=== PATIENT | male | born 1970 | race Caucasian/White ===

== ENCOUNTER 2021-09-25 00:11 | Emergency (ER) | payer MEDICAID ==
[~2021-09-25] VITALS: Ht 182.9 cm; Wt 90.9 kg
[2021-09-25 01:20] LABS: BASOPHILS % (AUTO) 0.5 % (0-1); LYMPHOCYTES # (AUTO) 0.6 X10'3 (1.1-4.8); MONOCYTES # (AUTO) 0.6 X10'3 (0-0.9); NEUTROPHILS % (AUTO) 70.3 % (42-75); WHITE BLOOD COUNT 4.2 X10'3 (4.5-11.0)
[2021-09-25 01:22] LABS: EOSINOPHILS % (AUTO) 0.5 % (0-6); HEMATOCRIT 36.7 % (42.0-52.0); HEMOGLOBIN 12.4 g/dl (14.0-17.9); LYMPHOCYTES % (AUTO) 14.1 % (21-51); MEAN CORPUSCULAR HEMOGLOBIN 31.8 PG (27.0-31.0); MEAN CORPUSCULAR HGB CONC 33.8 g/dL (33.0-36.5); MEAN CORPUSCULAR VOLUME 94.2 FL (78-98); MEAN PLATELET VOLUME 8.7 FL (7.4-10.4); MONOCYTES % (AUTO) 14.6 % (2-12); PLATELET COUNT 97 X10'3 (140-440)
[2021-09-25 01:34] LABS: ALANINE AMINOTRANSFERASE 98 U/L (12-78); ALBUMIN 3.6 G/DL (3.4-5.0); ALBUMIN/GLOBULIN RATIO 0.8 (1.1-1.5); ALKALINE PHOSPHATASE 90 IU/L (46-116); ANION GAP 7 (8-16); ASPARTATE AMINO TRANSFERASE 79 U/L (10-37); BILIRUBIN,DIRECT 0.4 MG/DL (0-0.3); BILIRUBIN,TOTAL 1.2 MG/DL (0.1-1.0); BLOOD UREA NITROGEN 11 MG/DL (7-18); BUN/CREATININE RATIO 12.2 (5.4-32.0); CALCIUM 8.4 MG/DL (8.5-10.1); CHLORIDE 102 MMOL/L (99-107); ETHANOL < 0.010 GM/DL (0.0-0.010); GLUCOSE 146 MG/DL (70-104); LIPASE 223 U/L (73-393); POTASSIUM 3.2 MMOL/L (3.5-5.1); SODIUM 136 MMOL/L (135-145); TOTAL CARBON DIOXIDE 27.3 MMOL/L (24-32); TOTAL PROTEIN 7.9 G/DL (6.4-8.2); eGFR 89 ML/MIN
[2021-09-25 01:54] LABS: URINE AMPHETAMINE SCREEN NEGATIVE (Neg); URINE BARBITUATE SCREEN NEGATIVE (Neg); URINE BENZODIAZEPINES SCREEN NEGATIVE (Neg); URINE CANNABINOID SCREEN NEGATIVE (Neg); URINE COCAINE SCREEN NEGATIVE (Neg); URINE METHADONE SCREEN NEGATIVE (Neg); URINE OPIATE SCREEN NEGATIVE (Neg); URINE PHENCYCLIDINE SCREEN NEGATIVE (Neg)
[2021-09-25 02:26] LABS: PLATELET ESTIMATE DECREASED; TOTAL CELLS COUNTED 100
[2021-09-25] MEDS ORDERED: LEVE750T6 PO (02:50)
[2021-09-25] MEDS ORDERED: levetiracetam 250mg tablet PO ONE (02:55)
[2021-09-25] MEDS ORDERED: gabapentin 400mg capsule PO STA (02:59)
[2021-09-25 03:01] VITALS: BP 127/80
[2021-09-25] MEDS ORDERED: LORazepam 1 MG tablet PO ONE (03:45)
== END 2021-09-25 04:28 | disposition home or self-care (01) ==
LOC: ER 00:13
DX: R56.9 Unspecified convulsions (principal); R41.0 Disorientation, unspecified; R10.30 Lower abdominal pain, unspecified; Z79.899 Other long term (current) drug therapy
CPT/HCPCS: 36415; 70450; 71045; 80048; 80076; 80305; 80320; 82140; 83690; 85007; 85025; 93005; 99285

== ENCOUNTER 2022-08-12 15:58 | Emergency (ER) | payer SELFPAY ==
[~2022-08-12] VITALS: Ht 185.4 cm; Wt 85.0 kg
[~2022-08-12 15:58] MED LIST: LEVE750T6 PO
[2022-08-12] MEDS ORDERED: normal saline 1000ML IV soln IVB ONE (16:20)
[2022-08-12 17:16] LABS: BASOPHILS # (AUTO) 0.1 X10'3 (0-0.2); BASOPHILS % (AUTO) 0.4 % (0-1); EOSINOPHILS % (AUTO) 0.1 % (0-6); HEMATOCRIT 44.9 % (42.0-52.0); HEMOGLOBIN 14.9 g/dl (14.0-17.9); LYMPHOCYTES # (AUTO) 4.4 X10'3 (1.1-4.8); LYMPHOCYTES % (AUTO) 28.5 % (21-51); MEAN CORPUSCULAR HEMOGLOBIN 29.1 PG (27.0-31.0); MEAN CORPUSCULAR HGB CONC 33.3 g/dL (33.0-36.5); MEAN CORPUSCULAR VOLUME 87.5 FL (78-98); MEAN PLATELET VOLUME 8.4 FL (7.4-10.4); MONOCYTES # (AUTO) 1.2 X10'3 (0-0.9); MONOCYTES % (AUTO) 7.6 % (2-12); NEUTROPHILS # (AUTO) 9.8 X10'3 (1.8-7.7); NEUTROPHILS % (AUTO) 63.4 % (42-75); PLATELET COUNT 223 X10'3 (140-440); RED BLOOD COUNT 5.13 X10'6 (4.70-6.10); RED CELL DISTRIBUTION WIDTH 12.6 % (11.5-14.5); WHITE BLOOD COUNT 15.5 X10'3 (4.5-11.0)
[2022-08-12 17:26] LABS: ALANINE AMINOTRANSFERASE 36 U/L (12-78); ALBUMIN 4.1 G/DL (3.4-5.0); ALBUMIN/GLOBULIN RATIO 0.9 (1.1-1.5); ALKALINE PHOSPHATASE 90 IU/L (46-116); ASPARTATE AMINO TRANSFERASE 31 U/L (10-37); BILIRUBIN,TOTAL 0.3 MG/DL (0.1-1.0); BLOOD UREA NITROGEN 24 MG/DL (7-18); BUN/CREATININE RATIO 21.1 (5.4-32.0); CALCIUM 9.1 MG/DL (8.5-10.1); CREATININE 1.14 MG/DL (0.60-1.10); GLUCOSE 75 MG/DL (70-104); TOTAL CARBON DIOXIDE 16.8 MMOL/L (24-32); TOTAL PROTEIN 8.5 G/DL (6.4-8.2); eGFR 68 ML/MIN
[2022-08-12 17:29] LABS: ANION GAP 19 (8-16); CHLORIDE 102 MMOL/L (99-107); SODIUM 138 MMOL/L (135-145)
[2022-08-12] MEDS ORDERED: normal saline 1000ML IV soln IV ONE (18:50)
--- NOTE | 2022-08-12 19:38 | NUR ---
He thinks it is 1970 and has no idea where he is, who the president is or anything. MD in to evaluate him.
--- NOTE | 2022-08-12 20:36 | NUR ---
I agree with A Martha Cohen assessment.
--- NOTE | 2022-08-12 22:34 | NUR ---
CALLED [facility] NO ANSWER
--- NOTE | 2022-08-12 22:46 | NUR ---
[facility] ACCEPTED
--- NOTE | 2022-08-12 23:26 | NUR ---
He pulled out his IV MD made aware Lab here to redraw CBC, LA is in process. Pt aware it is 2021. Cleaned up all his blood mess.
[2022-08-12 23:30] LABS: ALANINE AMINOTRANSFERASE 92 U/L (12-78); ALBUMIN 3.4 G/DL (3.4-5.0); ALKALINE PHOSPHATASE 81 IU/L (46-116); ANION GAP 16 (8-16); ASPARTATE AMINO TRANSFERASE 130 U/L (10-37); BILIRUBIN,TOTAL 0.3 MG/DL (0.1-1.0); BLOOD UREA NITROGEN 27 MG/DL (7-18); BUN/CREATININE RATIO 25.5 (5.4-32.0); CALCIUM 7.5 MG/DL (8.5-10.1); CHLORIDE 107 MMOL/L (99-107); CREATININE 1.06 MG/DL (0.60-1.10); GLUCOSE 67 MG/DL (70-104); SODIUM 138 MMOL/L (135-145); TOTAL CARBON DIOXIDE 15.1 MMOL/L (24-32); TOTAL PROTEIN 6.9 G/DL (6.4-8.2); eGFR 74 ML/MIN
[2022-08-12 23:32] LABS: POTASSIUM 4.5 MMOL/L (3.5-5.1)
[2022-08-12 23:52] LABS: BASOPHILS # (AUTO) 0.1 X10'3 (0-0.2); MONOCYTES # (AUTO) 0.9 X10'3 (0-0.9)
[2022-08-12 23:53] LABS: BASOPHILS % (AUTO) 0.6 % (0-1); EOSINOPHILS % (AUTO) 0.1 % (0-6); HEMATOCRIT 44.4 % (42.0-52.0); HEMOGLOBIN 14.7 g/dl (14.0-17.9); LYMPHOCYTES # (AUTO) 2.1 X10'3 (1.1-4.8); LYMPHOCYTES % (AUTO) 15.3 % (21-51); MEAN CORPUSCULAR HEMOGLOBIN 29.3 PG (27.0-31.0); MEAN CORPUSCULAR VOLUME 88.8 FL (78-98); MEAN PLATELET VOLUME 9.1 FL (7.4-10.4); MONOCYTES % (AUTO) 6.1 % (2-12); NEUTROPHILS # (AUTO) 10.9 X10'3 (1.8-7.7); NEUTROPHILS % (AUTO) 77.9 % (42-75); PLATELET COUNT 150 X10'3 (140-440); RED CELL DISTRIBUTION WIDTH 13.2 % (11.5-14.5)
[2022-08-13] MEDS ORDERED: normal saline 1000ML IV soln IV ONE (00:20)
[2022-08-13] MEDS ORDERED: LORazepam 2 mg/ml vial IV ONE (00:50)
[2022-08-13] MEDS ORDERED: dextrose 50%-water 50ml dispensing syringe IV ONE (01:20)
[2022-08-13] MEDS ORDERED: thiamine 100mg/ml 2ml inj. IV ONE (01:20)
[2022-08-13] MEDS ORDERED: dextrose 5%-1/2 normal saline 1,000 ML IV SCH (01:20)
[2022-08-13 03:59] VITALS: BP 128/78
== END 2022-08-13 04:00 | disposition home or self-care (01) ==
LOC: ER 15:59
DX: F10.920 Alcohol use, unspecified with intoxication, uncomplicated (principal); Z59.00 Homelessness unspecified; Y90.9 Presence of alcohol in blood, level not specified
CPT/HCPCS: 36415; 70450; 71045; 80053; 83605; 84145; 85025; 96360; 96361; 99285; J7030; 82948; J3411; J3490; J7042

== ENCOUNTER 2023-02-02 11:01 | Emergency (ER) | payer MEDICAID ==
[~2023-02-02] VITALS: Ht 185.4 cm; Wt 90.0 kg
[2023-02-02] MEDS ORDERED: normal saline 1000ML IV soln IVB ONE ×3 (11:05→13:40)
[2023-02-02 11:43] LABS: BASOPHILS # (AUTO) 0.1 X10'3 (0-0.2); BASOPHILS % (AUTO) 1.2 % (0-1); EOSINOPHILS % (AUTO) 0.6 % (0-6); HEMATOCRIT 32.6 % (42.0-52.0); HEMOGLOBIN 10.7 g/dl (14.0-17.9); LYMPHOCYTES # (AUTO) 2.2 X10'3 (1.1-4.8); LYMPHOCYTES % (AUTO) 26.6 % (21-51); MEAN CORPUSCULAR HEMOGLOBIN 29.9 PG (27.0-31.0); MEAN CORPUSCULAR VOLUME 90.7 FL (78-98); MEAN PLATELET VOLUME 7.2 FL (7.4-10.4); MONOCYTES # (AUTO) 1.7 X10'3 (0-0.9); MONOCYTES % (AUTO) 20.7 % (2-12); NEUTROPHILS # (AUTO) 4.3 X10'3 (1.8-7.7); NEUTROPHILS % (AUTO) 50.9 % (42-75); PLATELET COUNT 394 X10'3 (140-440); RED BLOOD COUNT 3.59 X10'6 (4.70-6.10); RED CELL DISTRIBUTION WIDTH 18.1 % (11.5-14.5); WHITE BLOOD COUNT 8.4 X10'3 (4.5-11.0)
[2023-02-02 12:00] LABS: ALANINE AMINOTRANSFERASE 48 U/L (12-78); ALBUMIN 3.3 G/DL (3.4-5.0); ALBUMIN/GLOBULIN RATIO 0.7 (1.1-1.5); ALKALINE PHOSPHATASE 107 IU/L (46-116); ANION GAP 13 (8-16); BILIRUBIN,TOTAL 0.3 MG/DL (0.1-1.0); BLOOD UREA NITROGEN 16 MG/DL (7-18); BUN/CREATININE RATIO 11.1 (10.0-20.0); CALCIUM 8.1 MG/DL (8.5-10.1); CHLORIDE 102 MMOL/L (99-107); CREATININE 1.44 MG/DL (0.60-1.10); GLUCOSE 110 MG/DL (70-104); SODIUM 136 MMOL/L (135-145); TOTAL CARBON DIOXIDE 21.4 MMOL/L (24-32); TOTAL PROTEIN 7.8 G/DL (6.4-8.2); eGFR 52 ML/MIN
[2023-02-02 12:02] LABS: ASPARTATE AMINO TRANSFERASE 47 U/L (10-37); POTASSIUM 4.2 MMOL/L (3.5-5.1)
[2023-02-02 12:03] LABS: ANISOCYTOSIS 2+; LARGE PLATELETS FEW; PLATELET ESTIMATE NORMAL; TOTAL CELLS COUNTED 100
[2023-02-02] MEDS ORDERED: normal saline 1000ml 1,000 ML IV ONE (13:40)
--- NOTE | 2023-02-02 15:05 | NUR ---
PT SITTING AT SIDE OF BED TO USE THE URINAL. PT SEEN WALKING AROUND IN THE ROOM AND HAD A WITNESSED FALL. PT LANDED ON HIS RT SIDE, PROCEEDED TO ATTEMT TO GET UP ON HIS OWN WHEN HE WAS TOLD TO STOP AND WAS THEN ASSISTED UP. PT SHOWS NO S/S OF INJURY. THERE WAS NO LOC, NO HEAD STRIKE. PT HAS NO COMPLAINTS OF PAIN SECONDARY TO FALL. DELPHINE IRBY WAS SEEN OUTSIDE OF THE PT'S ROOM, WAS TOLD OF THE INCIDENT AND THAT THERE WERE NO S/S OF INJURY, NO COMPLAINTS OF PAIN, NO LOC, NO HEAD STRIKE. PT WAS RETURNED TO [facility] AND INSTRUCTED TO LET STAFF KNOW IF HE NEEDED TO USE THE BATHROOM FOR ASSISTANCE. HEAD OF [facility] WAS SLIGHTLY LOWERED AND [facility] RAIL WAS PLACED BACK UPRIGHT TO PREVENT PT FROM COMING OFF OF THE BED WITHOUT ASSISTANCE
--- NOTE | 2023-02-02 17:02 | NUR ---
Patient used urinal at bedside and continued to encourage. Patient ripped of monitors x3. Provided with santos florez as requested
--- NOTE | 2023-02-02 17:09 | NUR ---
Provided patient with santos crackers and water for PO challenge
--- NOTE | 2023-02-02 17:29 | NUR ---
Patient unable to walk without falling at this time. Will re-try gait test in 1 hour
[2023-02-02 17:34] LABS: URINE AMPHETAMINE SCREEN NEGATIVE (Neg); URINE BARBITUATE SCREEN NEGATIVE (Neg); URINE BENZODIAZEPINES SCREEN NEGATIVE (Neg); URINE CANNABINOID SCREEN NEGATIVE (Neg); URINE COCAINE SCREEN NEGATIVE (Neg); URINE METHADONE SCREEN NEGATIVE (Neg); URINE OPIATE SCREEN NEGATIVE (Neg); URINE PHENCYCLIDINE SCREEN NEGATIVE (Neg)
[2023-02-02 18:46] VITALS: BP 114/65
== END 2023-02-02 18:51 | disposition home or self-care (01) ==
LOC: ER 11:02
DX: F10.129 Alcohol abuse with intoxication, unspecified (principal); Z59.00 Homelessness unspecified; Y90.9 Presence of alcohol in blood, level not specified
CPT/HCPCS: 36415; 70450; 71045; 80053; 80305; 80320; 83605; 84145; 85007; 85025; 87040; 87077; 87186; 93005; 96360; 96361; 99285; J7030

== ENCOUNTER 2023-02-06 11:53 | Emergency (ER) | payer MEDICAID ==
[~2023-02-06] VITALS: Ht 177.8 cm; Wt 80.0 kg
[2023-02-06] MEDS ORDERED: normal saline 1000ML IV soln IVB ONE (12:10)
[2023-02-06 12:36] LABS: BASOPHILS # (AUTO) 0.1 X10'3 (0-0.2); BASOPHILS % (AUTO) 1.1 % (0-1); EOSINOPHILS % (AUTO) 0.9 % (0-6); HEMATOCRIT 37.6 % (42.0-52.0); HEMOGLOBIN 12.4 g/dl (14.0-17.9); LYMPHOCYTES # (AUTO) 2.5 X10'3 (1.1-4.8); MEAN CORPUSCULAR HEMOGLOBIN 29.8 PG (27.0-31.0); MEAN CORPUSCULAR HGB CONC 32.8 g/dL (33.0-36.5); MEAN CORPUSCULAR VOLUME 90.9 FL (78-98); MEAN PLATELET VOLUME 6.8 FL (7.4-10.4); MONOCYTES # (AUTO) 0.7 X10'3 (0-0.9); MONOCYTES % (AUTO) 14.2 % (2-12); NEUTROPHILS # (AUTO) 1.9 X10'3 (1.8-7.7); NEUTROPHILS % (AUTO) 35.8 % (42-75); PLATELET COUNT 611 X10'3 (140-440); RED BLOOD COUNT 4.14 X10'6 (4.70-6.10); RED CELL DISTRIBUTION WIDTH 18.5 % (11.5-14.5); WHITE BLOOD COUNT 5.3 X10'3 (4.5-11.0)
[2023-02-06 12:43] LABS: ALANINE AMINOTRANSFERASE 43 U/L (12-78); ALBUMIN 3.3 G/DL (3.4-5.0); ALBUMIN/GLOBULIN RATIO 0.7 (1.1-1.5); ALKALINE PHOSPHATASE 149 IU/L (46-116); ANION GAP 11 (8-16); ASPARTATE AMINO TRANSFERASE 34 U/L (10-37); BILIRUBIN,TOTAL 0.3 MG/DL (0.1-1.0); BLOOD UREA NITROGEN 7 MG/DL (7-18); BUN/CREATININE RATIO 8.3 (10.0-20.0); CALCIUM 8.1 MG/DL (8.5-10.1); CHLORIDE 105 MMOL/L (99-107); CREATININE 0.84 MG/DL (0.60-1.10); GLUCOSE 119 MG/DL (70-104); POTASSIUM 3.8 MMOL/L (3.5-5.1); SODIUM 142 MMOL/L (135-145); TOTAL CARBON DIOXIDE 25.6 MMOL/L (24-32); eGFR > 90 ML/MIN
[2023-02-06 12:44] LABS: ETHANOL 0.527 GM/DL (0.0-0.010)
[2023-02-06 12:52] LABS: LARGE PLATELETS FEW; PLATELET ESTIMATE INCREASED
[2023-02-06 12:53] LABS: ANISOCYTOSIS 2+; ELLIPTOCYTES FEW
--- NOTE | 2023-02-06 14:41 | NUR ---
Patient sleeping at this time and in NAD
--- NOTE | 2023-02-06 16:27 | NUR ---
Patient urinating on floor, addressed patient to get back in bed, changed and cleaned. patient pulling off monitors, redirected patient to urinal for safety. placed ear SPO2
[2023-02-06 16:29] VITALS: BP 115/74
--- NOTE | 2023-02-06 19:28 | NUR ---
Patient discharged by [facility].
== END 2023-02-06 19:22 | disposition home or self-care (01) ==
LOC: ER 11:54
DX: R41.82 Altered mental status, unspecified (principal); F10.129 Alcohol abuse with intoxication, unspecified; Z59.00 Homelessness unspecified; Z56.0 Unemployment, unspecified
CPT/HCPCS: 36415; 80053; 80320; 85008; 85025; 96360; 99285; J7030

== ENCOUNTER 2024-05-09 15:30 | Inpatient (IN) | payer MEDICAID ==
[~2024-05-09] VITALS: Ht 185.4 cm; Wt 69.3 kg
[2024-05-09 15:45] VITALS: PULSE 87; RESP 11; O2SAT 99
[2024-05-09 16:05] LABS: BASOPHILS # (AUTO) 0.1 X10'3 (0-0.2); BASOPHILS % (AUTO) 0.5 % (0-1); EOSINOPHILS % (AUTO) 0.1 % (0-6); HEMATOCRIT 42.6 % (42.0-52.0); HEMOGLOBIN 13.5 g/dl (14.0-17.9); LYMPHOCYTES # (AUTO) 2.6 X10'3 (1.1-4.8); MEAN CORPUSCULAR HEMOGLOBIN 27.7 PG (27.0-31.0); MEAN CORPUSCULAR HGB CONC 31.8 g/dL (33.0-36.5); MEAN PLATELET VOLUME 9.3 FL (7.4-10.4); MONOCYTES # (AUTO) 0.9 X10'3 (0-0.9); MONOCYTES % (AUTO) 7.4 % (2-12); NEUTROPHILS # (AUTO) 8.3 X10'3 (1.8-7.7); PLATELET COUNT 207 X10'3 (140-440); RED CELL DISTRIBUTION WIDTH 14.7 % (11.5-14.5); WHITE BLOOD COUNT 11.9 X10'3 (4.5-11.0)
[2024-05-09 16:13] LABS: ANION GAP 18 (8-16); CHLORIDE 102 MMOL/L (99-107); POTASSIUM 3.7 MMOL/L (3.5-5.1); SODIUM 139 MMOL/L (135-145); TOTAL CARBON DIOXIDE 18.8 MMOL/L (24-32)
[2024-05-09] MEDS: LidoCAINE 2% Topical Jelly 11mL syringe (UROJET) TOP ONE (16:24)
[2024-05-09 16:35] LABS: ALBUMIN 4.4 G/DL (3.4-5.0); ALBUMIN/GLOBULIN RATIO 1.2 (1.1-1.5); CREATININE 2.38 MG/DL (0.60-1.10); eCRCL 39 ML/MIN; eGFR 29 ML/MIN
[2024-05-09] MEDS: naloxone 2mg/2ml inj IV STA (16:45)
[2024-05-09 16:46] LABS: ALANINE AMINOTRANSFERASE 17 U/L (12-78); ALKALINE PHOSPHATASE 80 IU/L (46-116); ASPARTATE AMINO TRANSFERASE 23 U/L (10-37); BILIRUBIN,TOTAL 0.7 MG/DL (0.1-1.0); BLOOD UREA NITROGEN 42 MG/DL (7-18); BUN/CREATININE RATIO 17.6 (10.0-20.0); CALCIUM 8.5 MG/DL (8.5-10.1); CREATINE KINASE 153 U/L (39-308); PRO BRAIN NATRIURETIC PEPTIDE 139 PG/ML (0-125)
[2024-05-09] MEDS: dextrose 50%-water 50ml dispensing syringe IV ONE (16:46)
[2024-05-09 16:51] LABS: GLUCOSE 48 MG/DL (70-104)
[2024-05-09 17:00] LABS: BILIRUBIN,URINE SMALL (Neg); CLARITY,URINE CLEAR (Clear); COLOR,URINE YELLOW (Yellow); GLUCOSE, URINE NEGATIVE (Neg); KETONES,URINE 15 mg/dl (Neg); LEUKOCYTE ESTERASE ,URINE NEGATIVE (Neg); NITRITES, URINE NEGATIVE (Neg); OCCULT BLOOD,URINE NEGATIVE (Neg); PROTEIN,URINE 30 mg/dl (Neg)
[2024-05-09 17:05] LABS: URINE AMPHETAMINE SCREEN NEGATIVE (Neg); URINE BARBITUATE SCREEN NEGATIVE (Neg); URINE BENZODIAZEPINES SCREEN NEGATIVE (Neg); URINE CANNABINOID SCREEN NEGATIVE (Neg); URINE COCAINE SCREEN NEGATIVE (Neg); URINE METHADONE SCREEN NEGATIVE (Neg); URINE OPIATE SCREEN NEGATIVE (Neg); URINE PHENCYCLIDINE SCREEN NEGATIVE (Neg)
[2024-05-09 17:07] LABS: SQUAMOUS EPITHELIAL CELL,UR NONE SEEN /LPF (FEW); UA COLLECTION TYPE FOLEY CATH
[2024-05-09 17:08] LABS: BACTERIA,URINE FEW /HPF (Neg); RBC,URINE 0-2 /HPF (0-2)
[2024-05-09] MEDS: normal saline 1000ml 1,000 ML IVB ONE ×3 (17:15)
[2024-05-09 17:43] LABS: ETHANOL 398 MG/DL (<10)
[2024-05-09 18:09] LABS: ABG BASE EXCESS -12.1 mmol/L (-2.0-3.0); ABG HCO3 15.1 mmol/L (21.0-28.0); ABG OXYGEN SATURATION 95.3 % (94.0-98.0); ABG PCO2 (T) 36.5 mmHg (35.0-48.0); ABG PH (T) 7.227 (7.350-7.450); ALLEN'S TEST POSITIVE; FCOHb 0.3 % (0.5-1.5); FHHb 4.7 % (0.0-5.0); FMetHb 0.2 % (0.0-1.5); FO2Hb 94.8 % (94.0-98.0); MODE NASAL CANNULA; PATIENT TEMPERATURE 35.5; TOTAL HEMOGLOBIN 13.3 G/dl (13.5-17.5)
[2024-05-09] MEDS ORDERED: FOMEPIZOLE IV ONE (18:10)
[2024-05-09] MEDS ORDERED: NORMAL SALINE IV ONE (18:10)
[2024-05-09] MEDS ORDERED: morphine 2 MG/ML inj. syringe IV PRN (18:15)
[2024-05-09] MEDS ORDERED: acetaminophen 325mg tablet PO PRN ×2 (18:15)
[2024-05-09] MEDS ORDERED: ondansetron/PF 4mg/2ml inj IV PRN (18:15)
[2024-05-09] MEDS ORDERED: morphine 4 MG/ML inj SYRINge IV PRN (18:15)
[2024-05-09] MEDS ORDERED: magnesium hydroxide 30ml (MOM) UD suspension PO PRN (18:15)
[2024-05-09] MEDS ORDERED: UNABLE TO OBTAIN (18:23)
[2024-05-09 18:45] LABS: OSMOLALITY 411 MOSM/K (280-300)
[2024-05-09] MEDS: ringers solution, lacted 1,000 ML IV ONE ×3 (18:50→20:07)
[2024-05-09] MEDS: sodium bicarbonate 1meq/ml inj 150 ML in dextrose 5%-water 1,000 ML IV SCH (19:01)
[2024-05-09] MEDS: enoxaparin 30mg/0.3ml syringe SUBCUT ONE (19:04)
[2024-05-09] MEDS: FOMEPIZOLE IV ONE (19:49)
[2024-05-09] MEDS: NORMAL SALINE IV ONE (19:49)
[2024-05-09 20:00] VITALS: BP 107/55; PULSE 76; RESP 12; O2SAT 100
[2024-05-09] MEDS ORDERED: NORMAL SALINE IV SCH (20:00)
[2024-05-09] MEDS ORDERED: FOMEPIZOLE IV SCH (20:00)
[2024-05-09 21:00] VITALS: BP_SYST 107; BP_SYST 93; BP_DIAS 38; BP_DIAS 55; PULSE 59; RESP 11; O2SAT 100
[2024-05-09] MEDS: pantoprazole 40MG/NS 100ML BAG 100 ML IV SCH (21:04)
[2024-05-09 22:00] VITALS: BP 91/49; PULSE 57; RESP 12; O2SAT 100
[2024-05-09 23:00] VITALS: BP 83/43; PULSE 53; RESP 13; O2SAT 99
[2024-05-10] VITALS (24 sets, daily range): BP systolic 78–107; BP diastolic 36–56; PULSE 52–73; RESP 12–18; TEMP 98; O2SAT 92–100
[2024-05-10] MEDS: DOPamine 400mg/D5W 250ml 250 ML IV SCH ×3 (03:20→04:30)
[2024-05-10] MEDS: DOPamine 400mg/D5W 250ml 250 ML IV ONE (03:33)
[2024-05-10 03:57] LABS: HEMOGLOBIN A1C 5.9 % (4.5-6.2)
[2024-05-10 04:02] LABS: ALANINE AMINOTRANSFERASE 25 U/L (12-78); ALBUMIN 3.1 G/DL (3.4-5.0); ALBUMIN/GLOBULIN RATIO 1.1 (1.1-1.5); ALKALINE PHOSPHATASE 61 IU/L (46-116); ANION GAP 7 (8-16); ASPARTATE AMINO TRANSFERASE 61 U/L (10-37); BILIRUBIN,TOTAL 0.4 MG/DL (0.1-1.0); BLOOD UREA NITROGEN 26 MG/DL (7-18); BUN/CREATININE RATIO 20.2 (10.0-20.0); CALCIUM 6.7 MG/DL (8.5-10.1); CHLORIDE 108 MMOL/L (99-107); CREATININE 1.29 MG/DL (0.60-1.10); GLUCOSE 130 MG/DL (70-104); MAGNESIUM 1.1 MG/DL (1.5-2.4); PHOSPHORUS 2.8 MG/DL (2.3-4.5); POTASSIUM 3.4 MMOL/L (3.5-5.1); SODIUM 143 MMOL/L (135-145); TOTAL CARBON DIOXIDE 27.9 MMOL/L (24-32); eCRCL 66 ML/MIN; eGFR 58 ML/MIN
[2024-05-10 06:20] LABS: BASOPHILS % (AUTO) 0.3 % (0-1); EOSINOPHILS % (AUTO) 0.1 % (0-6); HEMATOCRIT 38.4 % (42.0-52.0); HEMOGLOBIN 12.5 g/dl (14.0-17.9); LYMPHOCYTES # (AUTO) 1.6 X10'3 (1.1-4.8); LYMPHOCYTES % (AUTO) 10.6 % (21-51); MEAN CORPUSCULAR HEMOGLOBIN 27.7 PG (27.0-31.0); MEAN CORPUSCULAR HGB CONC 32.7 g/dL (33.0-36.5); MEAN CORPUSCULAR VOLUME 84.8 FL (78-98); MEAN PLATELET VOLUME 8.9 FL (7.4-10.4); MONOCYTES # (AUTO) 1.2 X10'3 (0-0.9); MONOCYTES % (AUTO) 8.3 % (2-12); NEUTROPHILS # (AUTO) 11.9 X10'3 (1.8-7.7); NEUTROPHILS % (AUTO) 80.7 % (42-75); PLATELET COUNT 164 X10'3 (140-440); RED BLOOD COUNT 4.52 X10'6 (4.70-6.10); RED CELL DISTRIBUTION WIDTH 14.5 % (11.5-14.5); WHITE BLOOD COUNT 14.8 X10'3 (4.5-11.0)
[2024-05-10] MEDS ORDERED: Potassium Cl inj 40 MEQ in normal saline 250ml IV soln 250 ML IV ONE (06:20)
[2024-05-10] MEDS ORDERED: GABA600T13 PO (07:36)
[2024-05-10] MEDS ORDERED: FOLI1TAB27 PO (07:36)
[2024-05-10] MEDS ORDERED: LEVE500T PO (07:36)
[2024-05-10] MEDS ORDERED: LACO200T4 PO (07:36)
[2024-05-10] MEDS ORDERED: TRAZ-251 PO (07:36)
[2024-05-10] MEDS ORDERED: NORMAL SALINE IV SCH (08:00)
[2024-05-10] MEDS ORDERED: FOMEPIZOLE IV SCH (08:00)
[2024-05-10] MEDS: famotidine 20mg tablet PO SCH (08:33)
[2024-05-10] MEDS: ringers solution, lacted 1,000 ML IV ONE ×2 (08:37→10:00)
[2024-05-10] MEDS ORDERED: LORazepam 2 mg/ml vial IV PRN ×2 (09:25→18:25)
[2024-05-10] MEDS ORDERED: haloperidol lactate 5mg/ml inj IM PRN ×2 (09:25→18:25)
[2024-05-10] MEDS ORDERED: haloperidol 5mg tablet PO PRN ×2 (09:25→18:25)
[2024-05-10] MEDS: midodrine 5mg tablet PO SCH (11:17)
[2024-05-10] MEDS: ringers solution, lacted 1,000 ML IV SCH (11:55)
[2024-05-10] MEDS: thiamine 100mg/ml 2ml inj. IV SCH (12:04)
[2024-05-10] MEDS: acetaminophen 325mg tablet PO PRN (14:05)
[2024-05-10] MEDS ORDERED: magnesium sulf-water 4G/100mL 100 ML IV PRN ×2 (18:55)
[2024-05-10] MEDS ORDERED: potassium Cl 20 mEq SR tablet PO PRN (18:55)
[2024-05-10] MEDS ORDERED: magnesium sulf-water 2g/50mL 50 ML IV PRN ×2 (18:55)
[2024-05-10] MEDS ORDERED: potassium Cl 40MEQ/1/2NS 520ml 520 ML IV PRN (18:55)
[2024-05-10] MEDS: magnesium sulf-water 4G/100mL 100 ML IV ONE (19:02)
[2024-05-10] MEDS: piperacillin/tazo 4.5gm/100ml 100 ML IV SCH (20:10)
[2024-05-10] MEDS: LACOSAMIDE 50 MG TABLET PO SCH (20:11)
[2024-05-10] MEDS: potassium Cl 20 mEq SR tablet PO PRN (20:12)
[2024-05-10] MEDS: traZODone 50mg tablet PO SCH (20:12)
[2024-05-10] MEDS: levetiracetam 250mg tablet PO SCH (20:12)
[2024-05-11] MEDS ORDERED: piperacillin/tazo 4.5gm/100ml 100 ML IV SCH
[2024-05-11 02:00] VITALS: BP 93/59; PULSE 79; RESP 16; TEMP 98.9; O2SAT 97
[2024-05-11] MEDS: magnesium Cl slow-release 64mg tablet PO PRN (05:03)
[2024-05-11 06:00] VITALS: BP 92/51; PULSE 60; RESP 15; TEMP 99.3; O2SAT 97
[2024-05-11] MEDS: multivitamins, therapeutics tablet PO SCH (07:23)
[2024-05-11 07:49] LABS: BASOPHILS % (AUTO) 0.4 % (0-1); EOSINOPHILS % (AUTO) 0.1 % (0-6); HEMATOCRIT 33.1 % (42.0-52.0); HEMOGLOBIN 10.9 g/dl (14.0-17.9); LYMPHOCYTES # (AUTO) 1.6 X10'3 (1.1-4.8); LYMPHOCYTES % (AUTO) 15.3 % (21-51); MEAN CORPUSCULAR HGB CONC 32.9 g/dL (33.0-36.5); MEAN CORPUSCULAR VOLUME 84.9 FL (78-98); MEAN PLATELET VOLUME 9.4 FL (7.4-10.4); MONOCYTES # (AUTO) 1.2 X10'3 (0-0.9); NEUTROPHILS # (AUTO) 7.7 X10'3 (1.8-7.7); NEUTROPHILS % (AUTO) 73.2 % (42-75); PLATELET COUNT 123 X10'3 (140-440); RED CELL DISTRIBUTION WIDTH 14.5 % (11.5-14.5); WHITE BLOOD COUNT 10.6 X10'3 (4.5-11.0)
[2024-05-11 08:00] VITALS: RESP 15; O2SAT 97
[2024-05-11] MEDS: K and/or MAG REPLACEMENT MC SCH (08:00)
[2024-05-11 08:13] LABS: HBSAG SCREEN Negative (Negative); HEP B CORE AB, IGM Negative (Negative); HEP B CORE AB, TOT Negative (Negative); HEP B SURF AB Non Reactive (.)
[2024-05-11 08:27] LABS: ALANINE AMINOTRANSFERASE 29 U/L (12-78); ALBUMIN 2.4 G/DL (3.4-5.0); ALBUMIN/GLOBULIN RATIO 0.8 (1.1-1.5); ALKALINE PHOSPHATASE 48 IU/L (46-116); ANION GAP 5 (8-16); ASPARTATE AMINO TRANSFERASE 47 U/L (10-37); BLOOD UREA NITROGEN 13 MG/DL (7-18); BUN/CREATININE RATIO 14.1 (10.0-20.0); CALCIUM 7.3 MG/DL (8.5-10.1); CHLORIDE 105 MMOL/L (99-107); CREATININE 0.92 MG/DL (0.60-1.10); GLUCOSE 96 MG/DL (70-104); MAGNESIUM 1.4 MG/DL (1.5-2.4); PHOSPHORUS 1.7 MG/DL (2.3-4.5); POTASSIUM 3.7 MMOL/L (3.5-5.1); SODIUM 138 MMOL/L (135-145); TOTAL CARBON DIOXIDE 27.8 MMOL/L (24-32); TOTAL PROTEIN 5.3 G/DL (6.4-8.2); eCRCL 92 ML/MIN; eGFR 86 ML/MIN
[2024-05-11 10:00] VITALS: BP 100/55; PULSE 62; RESP 14; TEMP 98.5; O2SAT 96
[2024-05-11] MEDS ORDERED: FLU VACC TS2024-25(6MOS UP)/PF 45 MCG/0.5 ML SYRINGE IMVAC ONE (10:00)
[2024-05-11] MEDS ORDERED: LORazepam 1 MG tablet PO PRN (14:20)
[2024-05-11] MEDS ORDERED: LORazepam 2 mg/ml vial IV PRN (14:20)
[2024-05-11 18:00] VITALS: BP 142/63; PULSE 64; RESP 16; TEMP 99; O2SAT 97
[2024-05-11 20:00] VITALS: RESP 16; O2SAT 97
[2024-05-11] MEDS ORDERED: FOMEPIZOLE IV SCH (20:00)
[2024-05-11] MEDS ORDERED: NORMAL SALINE IV SCH (20:00)
[2024-05-12 06:00] VITALS: BP 113/61; PULSE 50; RESP 13; TEMP 98.7; O2SAT 98
[2024-05-12 06:42] LABS: EOSINOPHILS # (AUTO) 0.1 X10'3 (0-0.9); MONOCYTES # (AUTO) 0.8 X10'3 (0-0.9)
[2024-05-12 06:46] LABS: BASOPHILS % (AUTO) 0.6 % (0-1); EOSINOPHILS % (AUTO) 0.8 % (0-6); HEMATOCRIT 33.1 % (42.0-52.0); LYMPHOCYTES % (AUTO) 31.1 % (21-51); MEAN CORPUSCULAR HEMOGLOBIN 28.6 PG (27.0-31.0); MEAN CORPUSCULAR HGB CONC 33.2 g/dL (33.0-36.5); MEAN CORPUSCULAR VOLUME 86.1 FL (78-98); MONOCYTES % (AUTO) 12.9 % (2-12); NEUTROPHILS # (AUTO) 3.5 X10'3 (1.8-7.7); NEUTROPHILS % (AUTO) 54.6 % (42-75); PLATELET COUNT 109 X10'3 (140-440); RED BLOOD COUNT 3.84 X10'6 (4.70-6.10); RED CELL DISTRIBUTION WIDTH 14.7 % (11.5-14.5); WHITE BLOOD COUNT 6.4 X10'3 (4.5-11.0)
[2024-05-12 07:13] LABS: ALANINE AMINOTRANSFERASE 29 U/L (12-78); ALBUMIN 2.4 G/DL (3.4-5.0); ALBUMIN/GLOBULIN RATIO 0.8 (1.1-1.5); ALKALINE PHOSPHATASE 45 IU/L (46-116); ANION GAP 4 (8-16); ASPARTATE AMINO TRANSFERASE 36 U/L (10-37); BILIRUBIN,TOTAL 0.8 MG/DL (0.1-1.0); BLOOD UREA NITROGEN 11 MG/DL (7-18); BUN/CREATININE RATIO 10.9 (10.0-20.0); CALCIUM 7.7 MG/DL (8.5-10.1); CHLORIDE 105 MMOL/L (99-107); CREATININE 1.01 MG/DL (0.60-1.10); GLUCOSE 85 MG/DL (70-104); MAGNESIUM 1.1 MG/DL (1.5-2.4); PHOSPHORUS 1.9 MG/DL (2.3-4.5); SODIUM 138 MMOL/L (135-145); TOTAL CARBON DIOXIDE 29.1 MMOL/L (24-32); TOTAL PROTEIN 5.3 G/DL (6.4-8.2); eCRCL 84 ML/MIN; eGFR 78 ML/MIN
[2024-05-12 07:17] LABS: LARGE PLATELETS FEW; PLATELET ESTIMATE DECREASED
[2024-05-12 07:18] LABS: ACANTHOCYTES FEW; BURR CELLS FEW; SCHISTOCYTES FEW
[2024-05-12 07:57] VITALS: BP 112/72
[2024-05-12 08:00] VITALS: RESP 16
[2024-05-12] MEDS ORDERED: NORMAL SALINE IV SCH (08:00)
[2024-05-12] MEDS ORDERED: FOMEPIZOLE IV SCH (08:00)
[2024-05-12] MEDS ORDERED: LORazepam 1 MG tablet PO PRN ×2 (09:25→18:25)
[2024-05-12] MEDS ORDERED: LORazepam 2 mg/ml vial IV PRN ×2 (09:25→18:25)
[2024-05-12] MEDS ORDERED: thiamine tablet PO (11:07)
[2024-05-12] MEDS ORDERED: MULT-25 PO (11:07)
[2024-05-12 11:21] VITALS: BP 98/56; PULSE 61; RESP 17; TEMP 98.3; O2SAT 96
[2024-05-12 12:43] VITALS: BP 111/73; PULSE 58
[2024-05-12] MEDS: FLU VACC TS2024-25(6MOS UP)/PF 45 MCG/0.5 ML SYRINGE IMVAC ONE (12:59)
[2024-05-12] MEDS ORDERED: NEUPHOSK PO (17:09)
[2024-05-12] MEDS ORDERED: MAGN500C4 PO (17:09)
[2024-05-14] MEDS ORDERED: thiamine 100mg tablet PO SCH (08:00)
[2024-05-14] MEDS ORDERED: LORazepam 2 mg/ml vial IV PRN ×2 (09:25→18:25)
[2024-05-14] MEDS ORDERED: LORazepam 1 MG tablet PO PRN ×2 (09:25→18:25)
[2024-05-15] MEDS ORDERED: folic acid 1mg tablet PO SCH (08:00)
== END 2024-05-12 16:54 | disposition home or self-care (01) | DRG 720 ==
LOC: ER 15:32 → MERGE 18:15 → EDBD 18:15 → ED HOLD 18:15 → CICU 2S 19:17 → ORTHO 4S 05-10 22:09
PROVIDERS: ADMIT Internal Medicine Critical Care Medicine; ATTEND Internal Medicine Critical Care Medicine
DX: A41.9 Sepsis, unspecified organism (principal); N17.0 Acute kidney failure with tubular necrosis; R65.21 Severe sepsis with septic shock; G92.8 Other toxic encephalopathy; E87.20 Acidosis, unspecified; E16.2 Hypoglycemia, unspecified; F10.229 Alcohol dependence with intoxication, unspecified; E86.0 Dehydration; G40.909 Epilepsy, unspecified, not intractable, without status epilepticus; G47.00 Insomnia, unspecified; Z79.899 Other long term (current) drug therapy; Z59.00 Homelessness unspecified; Z23 Encounter for immunization
CPT/HCPCS: 36415; 36600; 70450; 71045; 80053; 80305; 80320; 81001; 82140; 82550; 82803; 82948; 83036; 83605; 83735; 83880; 83930; 84100; 84145; 84484; 85008; 85018; 85025; 86704; 86705; 86706; 87040; 87081; 87088; 87340; 90686; 93005; 93306; 94760; 96374; 96375; 97116; 97161; 99291; A4615; A4620; A5200; C1758; G0378; J1265; J1451; J1650; J2310; J2470; J2543; J3411; J3475; J3490; J7030; J7040; J7050; J7070; J7120

== ENCOUNTER 2024-06-18 08:28 | Emergency (ER) | payer MEDICAID ==
[~2024-06-18] VITALS: Ht 182.9 cm; Wt 73.6 kg
[~2024-06-18 08:28] MED LIST changes: +FOLI1TAB27 PO; +LACO200T4 PO; +LEVE500T PO; -LEVE750T6 PO; +MAGN500C4 PO; +MULT-25 PO; +NEUPHOSK PO; +TRAZ-251 PO; +thiamine tablet PO
[2024-06-18 09:10] LABS: BASOPHILS # (AUTO) 0.1 X10'3 (0-0.2); BASOPHILS % (AUTO) 0.8 % (0-1); EOSINOPHILS # (AUTO) 0.2 X10'3 (0-0.9); EOSINOPHILS % (AUTO) 2.1 % (0-6); HEMATOCRIT 40.9 % (42.0-52.0); HEMOGLOBIN 13.2 g/dl (14.0-17.9); LYMPHOCYTES % (AUTO) 25.1 % (21-51); MEAN CORPUSCULAR HEMOGLOBIN 27.9 PG (27.0-31.0); MEAN CORPUSCULAR HGB CONC 32.4 g/dL (33.0-36.5); MONOCYTES # (AUTO) 0.8 X10'3 (0-0.9); MONOCYTES % (AUTO) 9.7 % (2-12); NEUTROPHILS % (AUTO) 62.3 % (42-75); PLATELET COUNT 216 X10'3 (140-440); RED BLOOD COUNT 4.76 X10'6 (4.70-6.10); RED CELL DISTRIBUTION WIDTH 15.2 % (11.5-14.5); WHITE BLOOD COUNT 8.1 X10'3 (4.5-11.0)
[2024-06-18] MEDS: levetiracetam-NACL1000mg/100ml 100 ML IV STA (09:42)
[2024-06-18] MEDS ORDERED: LEVE10002 PO (09:48)
[2024-06-18 09:58] LABS: BILIRUBIN,URINE NEGATIVE (Neg); CLARITY,URINE CLEAR (Clear); COLOR,URINE YELLOW (Yellow); GLUCOSE, URINE NEGATIVE (Neg); KETONES,URINE NEGATIVE (Neg); LEUKOCYTE ESTERASE ,URINE NEGATIVE (Neg); NITRITES, URINE NEGATIVE (Neg); OCCULT BLOOD,URINE NEGATIVE (Neg); PROTEIN,URINE 30 mg/dl (Neg); UROBILINOGEN,URINE 0.2 E.U/dL (0.2-1.0)
[2024-06-18 10:06] LABS: UA COLLECTION TYPE CLN CATCH MIDSTREAM
[2024-06-18 10:07] LABS: BACTERIA,URINE FEW /HPF (Neg); RBC,URINE 0-2 /HPF (0-2); SQUAMOUS EPITHELIAL CELL,UR FEW /LPF (FEW); URINE AMPHETAMINE SCREEN NEGATIVE (Neg); URINE BARBITUATE SCREEN NEGATIVE (Neg); URINE BENZODIAZEPINES SCREEN NEGATIVE (Neg); URINE CANNABINOID SCREEN NEGATIVE (Neg); URINE COCAINE SCREEN NEGATIVE (Neg); URINE METHADONE SCREEN NEGATIVE (Neg); URINE OPIATE SCREEN NEGATIVE (Neg); URINE PHENCYCLIDINE SCREEN NEGATIVE (Neg); WBC,URINE 0-4 /HPF (0-4)
[2024-06-18 10:08] LABS: ALANINE AMINOTRANSFERASE 20 U/L (12-78); ALKALINE PHOSPHATASE 65 IU/L (46-116); ANION GAP 10 (8-16); ASPARTATE AMINO TRANSFERASE 18 U/L (10-37); BILIRUBIN,TOTAL 0.4 MG/DL (0.1-1.0); BLOOD UREA NITROGEN 19 MG/DL (7-18); CALCIUM 8.6 MG/DL (8.5-10.1); CHLORIDE 103 MMOL/L (99-107); CREATININE 0.95 MG/DL (0.60-1.10); GLUCOSE 87 MG/DL (70-104); POTASSIUM 3.8 MMOL/L (3.5-5.1); SODIUM 139 MMOL/L (135-145); TOTAL CARBON DIOXIDE 26.3 MMOL/L (24-32); TOTAL PROTEIN 7.9 G/DL (6.4-8.2); eCRCL 95 ML/MIN; eGFR 83 ML/MIN
[2024-06-18 10:45] VITALS: BP 103/74; PULSE 78; RESP 16; TEMP 97.8; O2SAT 99
== END 2024-06-18 10:48 | disposition home or self-care (01) ==
LOC: ER 08:29
DX: G40.909 Epilepsy, unspecified, not intractable, without status epilepticus (principal); R32 Unspecified urinary incontinence; Z80.3 Family history of malignant neoplasm of breast
CPT/HCPCS: 36415; 80053; 80305; 80320; 81001; 85025; 93005; 96374; 99284; J1953

== ENCOUNTER 2024-09-26 15:19 | Emergency (ER) | payer MEDICAID ==
[~2024-09-26] VITALS: Ht 188 cm; Wt 72.7 kg
[~2024-09-26 15:19] MED LIST changes: +LEVE10002 PO
== END 2024-09-26 18:20 | disposition left against medical advice (07) ==
LOC: ER 15:21
DX: T14.8XXA Other injury of unspecified body region, initial encounter (principal); W57.XXXA Bitten or stung by nonvenomous insect and other nonvenomous arthropods, initial encounter; Y93.89 Activity, other specified; Y92.89 Other specified places as the place of occurrence of the external cause; Y99.8 Other external cause status; Z53.21 Procedure and treatment not carried out due to patient leaving prior to being seen by health care provider

== ENCOUNTER 2024-10-13 23:16 | Emergency (ER) | payer MEDICAID ==
[~2024-10-13] VITALS: Ht 182.9 cm; Wt 88.2 kg
[2024-10-13] MEDS: levetiracetam 250mg tablet PO ONE (23:31)
[2024-10-14 00:17] VITALS: TEMP 97.8
[2024-10-14] MEDS: LORazepam 2 mg/ml vial IV ONE (00:20)
[2024-10-14 00:30] LABS: BASOPHILS # (AUTO) 0.2 X10'3 (0-0.2); BASOPHILS % (AUTO) 1.1 % (0-1); EOSINOPHILS # (AUTO) 0.3 X10'3 (0-0.9); EOSINOPHILS % (AUTO) 1.7 % (0-6); HEMOGLOBIN 8.5 g/dl (14.0-17.9); LYMPHOCYTES # (AUTO) 2.2 X10'3 (1.1-4.8); MEAN CORPUSCULAR HGB CONC 31.6 g/dL (33.0-36.5); MEAN PLATELET VOLUME 8.4 FL (7.4-10.4); MONOCYTES # (AUTO) 1.6 X10'3 (0-0.9); MONOCYTES % (AUTO) 10.2 % (2-12); NEUTROPHILS # (AUTO) 11.5 X10'3 (1.8-7.7); PLATELET COUNT 360 X10'3 (140-440); RED BLOOD COUNT 3.41 X10'6 (4.70-6.10); RED CELL DISTRIBUTION WIDTH 15.1 % (11.5-14.5); WHITE BLOOD COUNT 15.7 X10'3 (4.5-11.0)
[2024-10-14 00:37] LABS: ALANINE AMINOTRANSFERASE 19 U/L (12-78); ALBUMIN 2.8 G/DL (3.4-5.0); ALBUMIN/GLOBULIN RATIO 0.6 (1.1-1.5); ALKALINE PHOSPHATASE 55 IU/L (46-116); ANION GAP 11 (8-16); ASPARTATE AMINO TRANSFERASE 15 U/L (10-37); BILIRUBIN,TOTAL 0.2 MG/DL (0.1-1.0); BLOOD UREA NITROGEN 29 MG/DL (7-18); BUN/CREATININE RATIO 25.7 (10.0-20.0); CALCIUM 7.9 MG/DL (8.5-10.1); CHLORIDE 106 MMOL/L (99-107); CREATININE 1.13 MG/DL (0.60-1.10); GLUCOSE 135 MG/DL (70-104); POTASSIUM 3.8 MMOL/L (3.5-5.1); SODIUM 139 MMOL/L (135-145); TOTAL PROTEIN 7.3 G/DL (6.4-8.2); eCRCL 83 ML/MIN; eGFR 68 ML/MIN
[2024-10-14 02:30] VITALS: PULSE 64; O2SAT 97
[2024-10-14 03:00] VITALS: BP 106/71; RESP 10
== END 2024-10-14 06:12 | disposition home or self-care (01) ==
LOC: ER 23:17
DX: R56.9 Unspecified convulsions (principal)
CPT/HCPCS: 36415; 80053; 80177; 85025; 96374; 99285; J2060; A4620

== ENCOUNTER 2025-04-24 14:45 | Emergency (ER) | payer MEDICAID ==
[~2025-04-24] VITALS: Ht 185.4 cm; Wt 77.3 kg
[~2025-04-24 14:45] MED LIST changes: +LACO200T14 PO; -LACO200T4 PO
[2025-04-24 15:24] LABS: MEAN PLATELET VOLUME 8.0 FL (7.4-10.4); RED CELL DISTRIBUTION WIDTH 16.4 % (11.5-14.5)
[2025-04-24 15:40] LABS: CREATININE 1.06 MG/DL (0.60-1.10); TOTAL CARBON DIOXIDE 23.9 MMOL/L (24-32); eCRCL 88 ML/MIN; eGFR 73 ML/MIN
[2025-04-24] MEDS ORDERED: KEP500T PO (16:17)
--- NOTE | 2025-04-24 16:17 | Physician Documentation ---
History of Present Illness ~ Chief Complaint: Seizure Stated Complaint: SZ Time Seen by MD: 15:01 Primary Medical Doctor: none Mode of Arrival: EMS HPI 54 year old male BIB EMS after apparent seizure [place] the local library. He h as a known seizure disorder but reports that he has not taken his keppra for awhile. He denies fevers, N/V/D, cough. Medication Reconciliation Allergies: Coded Allergies: No Allergy Information Available (Unverified , 02/25/23) pt etoh No Known Allergies (Unverified , 04/24/25) Scheduled Folic Acid* (Folic Acid*), 1 TAB PO DAILY, (Reported) Lacosamide (Lacosamide), 1 TAB PO BID, (Reported) Levetiracetam (Levetiracetam), 1 TAB PO BID, (Reported) Levetiracetam (Keppra), 1 TAB PO Q12H Magnesium Oxide (Magnesium), 500 MG PO BID Multivitamin with Folic Acid (Thera Tablet), 1 EACH PO Q24H Phosphorus #1* (Neutra-Phos K*), 1 TAB PO DAILY Trazodone HCl (Trazodone HCl), 1 TAB PO HS, (Reported) [thiamine tablet], 100 MG PO DAILY Past Medical History Past Medical History: No Pertinent History, Seizures, Eczema Past Surgical History: noncontributory Patient History: FH: breast cancer MOTHER Alcohol Use: Abuse Lives In: Homeless Occupation: unemployed Review of Systems All Other Systems at this time: Reviewed and Negative Physical Exam Vital Signs: RN Vital Signs have been reviewed: Yes, Temperature: 98.2, Source: Oral, Heart Rate: 96, Respiratory Rate: 18, BP: 122/92, Pulse Oximetry: 97, Weight: 77.270 Oxygen Flow Rate: 0 Physical Exam HEENT: PERRL, moist oral mucosa, EOMI; small bleeding abrasion to R nondenominational Pulmonary: No respiratory distress MSK: no deformity Skin: w/d/i, no rash Neuro: alert, nonfocal Psych: normal affect Progress Results/Orders Results/Orders Orders - FABIANO PACHECO MD Urinalysis, Cult If Indicated (04/24/25 15:01) Drug Screen, Urine (04/24/25 15:01) Levetiracetam Tablet (Keppra Tablet) (04/24/25 16:15) Completed Orders - FABIANO PACHECO MD Cbc/Diff (04/24/25 15:01) CMP (04/24/25 15:01) Vital Signs 04/24/25 04/24/25 14:46 14:54 Temp 98.2 Pulse 96 Resp 18 B/P (MAP) 122/92 Pulse Ox 97 O2 Flow Rate 0 Laboratory Tests Test 04/24/25 15:17 White Blood Count 6.4 Red Blood Count 4.37 L Hemoglobin 10.5 L Hematocrit 33.3 L Mean Corpuscular Volume 76.2 L Mean Corpuscular Hemoglobin 24.1 L Mean Corpuscular Hemoglobin Concent 31.6 L Red Cell Distribution Width 16.4 H Platelet Count 208 Mean Platelet Volume 8.0 Neutrophils (%) (Auto) 65.7 Lymphocytes (%) (Auto) 21.8 Monocytes (%) (Auto) 8.5 Eosinophils (%) (Auto) 3.2 Basophils (%) (Auto) 0.8 Neutrophils # (Auto) 4.2 Lymphocytes # (Auto) 1.4 Monocytes # (Auto) 0.5 Eosinophils # (Auto) 0.2 Basophils # (Auto) 0.1 CBC Comment Sodium Level 141 Potassium Level 4.1 Chloride Level 107 Carbon Dioxide Level 23.9 L Anion Gap 10 Blood Urea Nitrogen 22 H Creatinine 1.06 Estimated GFR/1.73 m2 73 BUN/Creatinine Ratio 20.8 H Glucose Level 159 H Calcium Level 8.9 Total Bilirubin 0.4 Aspartate Amino Transf (AST/SGOT) 18 Alanine Aminotransferase (ALT/SGPT) 14 Alkaline Phosphatase 70 Total Protein 7.8 Albumin 3.7 Globulin 4.1 Albumin/Globulin Ratio 0.9 L Chemistry Comments Medical Decision Making Findings 54 year old male with known seizure disorder, here for seizure, has not been taking keppra. Workup unremarkable, observed and no further seizure activity, provided keppra loading dose and prescription as patient wished to restart it. Will road test and discharge. Differential Dx:Considerations: Include: Psychogenic seizure, Due to alcohol withdrawl, Anticonvulsant withdrawl, Due to closed head injury, Due to hyp ocalcemia, Due to hypoglycemia, Due to hyponatremia, Due to hypoxemia, Syncope, Encephalopathy, Epilepsy-break through Departure Disposition: 01 HOME / SELF CARE / HOMELESS Impression: Primary Impression: Seizure Condition: Stable Discharge Instructions: Seizure, Adult Referrals: NO PRIMARY CARE PROVIDER (PCP) Prescriptions Levetiracetam (Keppra) 500 Mg Tablet 1 TAB PO Q12H for 30 Days, #60 TAB 0 Refills Prov: FABIANO PACHECO MD 04/24/25 Education Educated: Patient Educated regarding: diagnosis, treatment, prognosis, need for follow up Signature Scribe Signature: . Attestation: . FABIANO PACHECO MD Apr 24, 2025 16:17
[2025-04-24 17:10] VITALS: BP 117/64; PULSE 60; RESP 18; TEMP 98.2; O2SAT 99
== END 2025-04-24 17:10 | disposition home or self-care (01) ==
LOC: ER 14:46
DX: G40.909 Epilepsy, unspecified, not intractable, without status epilepticus (principal); F10.10 Alcohol abuse, uncomplicated; Z79.899 Other long term (current) drug therapy; Z56.0 Unemployment, unspecified; Z59.00 Homelessness unspecified; Y90.9 Presence of alcohol in blood, level not specified
CPT/HCPCS: 36415; 80053; 85025; 99284